=== PATIENT | female | born 1950 ===

== ENCOUNTER → 2017-11-08 18:19 | Outpatient (REF) | payer OTHER, SELFPAY | LOC: LAB 18:19 | PROVIDERS: Visit Provider Otolaryngology | DX: H60.8X1 Other otitis externa, right ear (principal); H90.71 Mixed conductive and sensorineural hearing loss, unilateral, right ear, with unrestricted hearing on the contralateral side | CPT/HCPCS: 87070; 87077; 87186; 87205 ==